=== PATIENT | female | born 1955 | race Caucasian/White ===

== ENCOUNTER 2016-07-29 10:25 | Day surgery (SDC) | payer MEDICARE, MEDICAID ==
[~2016-07-29] VITALS: Ht 161.3 cm; Wt 69.1 kg
[2016-07-29 10:56] LABS: BASOPHILS 0.1 % (0.0-2.0); HEMATOCRIT 46.5 % (36.0-48.0); HEMOGLOBIN 15.7 g/dL (12-16); IMMATURE GRANULOCYTES 0.3 % (0-5); LYMPHOCYTES 38.4 % (15-50); MCH 30.5 pg (26.0-34.0); MCHC 33.8 g/dL (31.0-37.0); MCV 90.5 fL (80.0-100.0); MEAN PLATELET VOLUME 10.5 fL (7.4-10.4); MONOCYTES 8.4 % (2-11); NEUTROPHILS 51.8 % (40-80); PLATELET COUNT 252 10x3/uL (130-400); RBC 5.14 10x6/uL (4.00-5.40); RDW 12.5 % (11.5-14.5); WBC 6.8 10x3/uL (4.8-10.8)
[2016-07-29 11:36] LABS: ANION GAP 15.5 mmol/L (8-16); CALCIUM 9.8 mg/dL (8.5-10.1); CARBON DIOXIDE 27.5 mmol/L (21.0-32.0); CREATININE - SERUM 0.9 mg/dL (0.6-1.3)
[2016-07-29] MEDS ORDERED: CATAPRES0.1 MG PO (12:01)
[2016-07-29] MEDS ORDERED: COZAAR50 MG PO (12:02)
[2016-07-29] MEDS ORDERED: NORVASC5 MG PO (12:02)
[2016-07-29] MEDS ORDERED: SYNTHROID88 MCG PO (12:02)
[2016-07-29] MEDS ORDERED: PROAIR HFA8.5 GM INH (12:03)
[2016-07-29 12:05] VITALS: BP 143/75; Ht 161.3 cm; Wt 69.1 kg
--- NOTE | 2016-07-29 14:15 | NUR ---
DISCHARGE INSTRUCTIONS REVIEWED WITH PATIENT, DISCHARGED HOME VIA WHEELCHAIR TO PRIVATE VEHICLE
--- NOTE | 2016-08-06 12:04 | OP ---
PATIENT NAME: RODRIGUE GRANT MEDICAL RECORD: [id number] :55 LOCATION:[facility] ADMISSION DATE: SURGEON: GREGORIO BAUTISTA DO DATE OF OPERATION: 07/29/2016 PROCEDURE: Colonoscopy with hot forceps polypectomy. ENDOSCOPIST: Gregorio Bautista DO. SCOPE: Olympus video colonoscope. MEDICATIONS: Propofol 240 mg IV and lidocaine 100 mg IV per anesthesia. INDICATIONS FOR PROCEDURE: Colon cancer screening with a history of colon polyps. FINDINGS: Informed consent was given. The patient was made comfortable with the above medications. After reaching an adequate level of sedation by slow IV pus, the patient was placed on her left side. The endoscope was then advanced under direct visualization through the rectum to the terminal ileum. There was evidence of pancolonic diverticulosis which was mild in severity. There was also a descending colon polyp, which was sessile. It measured approximately 5 mm. It was completely removed and retrieved by hot forceps polypectomy. The remainder of the examination was normal. The scope was withdrawn from the patient. The patient tolerated the procedure well and there were no complications. Withdrawal time was 10 minutes in duration. ESTIMATED BLOOD LOSS: Less than 3 cc. IMPRESSION: 1. Pancolonic diverticulosis of mild severity. 2. Descending colon polyp removed with hot forceps. PLAN AND RECOMMENDATIONS: 1. Discharged home when recovery parameters are met. 2. Continue current diet. 3. Continue current medications. 4. Recall recommendations will be depending on polyp type. I anticipate this will be a recall in 5 years for suspected tubular adenoma. TRANSINT:[id number] Voice Confirmation ID: [id number] DOCUMENT ID: [id number] GREGORIO BAUTISTA DO at 1204 CC: [id number] DICTATION DATE: 07/29/16 1331 [facility] OPERATOR: 07/29/16 1647 [facility] 07/29/16 [place] [id number]
== END 2016-07-29 14:35 | disposition home or self-care (01) ==
LOC: D.OPS 10:25
PROVIDERS: Anesthesiology
DX: Z12.11 Encounter for screening for malignant neoplasm of colon (principal); K63.5 Polyp of colon; K57.30 Diverticulosis of large intestine without perforation or abscess without bleeding; Z86.010 Personal history of colon polyps